=== PATIENT | female | born 2000 ===

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

== ENCOUNTER 2021-06-29 21:10 | Emergency (ER) | payer MEDICAID, SELFPAY ==
--- NOTE | ~2021-06-29 | XR_ITS ---
EXAMINATION: XR HAND, LEFT CLINICAL INFORMATION: Pain. Bleeding. COMPARISON: None TECHNIQUE: PA, lateral, and oblique views of the left hand. FINDINGS: There is no fracture or dislocation. Alignment is anatomic. Joint spaces are maintained. The soft tissues are unremarkable. XR/XR hand LT min 3V IMPRESSION: No acute osseous abnormality.
[2021-06-29 21:22] VITALS: BP 100/65; PULSE 81; RESP 18; TEMP 36; O2SAT 97; BMI 42.9
--- NOTE | 2021-06-29 22:03 | ED.EXTPRO ---
HPI - Extremity Problem General Chief complaint: Extremity Injury, Upper Stated complaint: finger laceration Time Seen by Provider: 06/29/21 22:03 Source: patient Mode of arrival: ambulatory Limitations: no limitations History of Present Illness HPI Narrative: Patient is a 21 year old female presenting to the emergency department today with a left middle finger injury. Patient states that she sat in a chair and her finger got pinched in between 2 sections of the chair, causing the injury. Patient denies any dizziness, lightheadedness, abdominal pain, nausea, vomiting, fever, chills, blurry vision, double vision, loss of vision, chest pain, difficulty breathing, shortness of breath, back pain, night sweats, pain with urination, increased urinary frequency, increased urinary urgency, blood in her urine or stool, syncope or a near syncopal episode, bowel incontinence, bladder incontinence, bowel retention, bladder retention, or any other complaints at this time. Patient states that she has a history of diabetes. MD Complaint: extremity pain Onset (ago): minute(s) Pain Consistency: constant Location: left and other (middle finger) Severity scale (1-10): 3 Quality: dull Radiation: none Relieving factors: nothing Exacerbating factors: nothing Associated symptoms: denies other symptoms Related Data Home Medications Medication Instructions Recorded Confirmed dulaglutide 1.5 mg/0.5 mL 1.5 mg SUBCUT SA 08/17/20 08/17/20 subcutaneous pen injector (Trulicity) metformin 500 mg tablet,extended 500 mg PO BID 08/17/20 08/17/20 release 24 hr Previous Rx's Medication Instructions Recorded cephalexin 500 mg capsule 500 mg PO Q6H 7 Days #28 cap 06/29/21 Allergies Allergy/AdvReac Type Severity Reaction Status Date / Time No Known Allergies Allergy Unverified 11/07/19 18:57 [No Known Allergies*] Review of Systems Constitutional: Constitutional: Reports no additional constitutional complaints, Denies chills, Denies fever(s) and Denies night sweats Eyes: Eyes: Reports no additional eye complaints, Denies blurry vision, Denies change in vision, Denies diplopia, Denies eye discharge, Denies loss of vision and Denies eye pain ENT: Denies dizziness Cardiovascular: Cardiovascular: Reports no additional cardiovascular complaints, Denies chest pain, Denies lightheadedness, Denies Loss of Consciousness and Denies dyspnea Respiratory: Respiratory: Reports no additional respiratory complaints and Denies dyspnea Gastrointestinal: Gastrointestinal: Reports no additional gastrointestinal complaints, Denies abdominal pain, Denies melena, Denies hematochezia, Denies change in bowel habits and Denies change in stool character Genitourinary: Genitourinary: Denies hematuria, Denies urinary frequency, Denies dysuria, Denies urinary incontinence, Denies urinary hesitancy and Denies urinary urgency Musculoskeletal: Musculoskeletal: Reports no additional musculoskeletal complaints, Denies numbness and Denies tingling Comments: left middle finger injury Neurologic: Denies dizziness, Denies loss of vision, Denies numbness and Denies tingling Psychiatric: Psychiatric: Reports no additional psychiatric complaints Endocrine: Endocrine: Reports no additional endocrine complaints Hematologic/Lymphatic: Hematologic/Lymphatic: Reports no additional hematologic/lymphatic complaints Allergic/Immunologic: Allergic/Immunologic: Reports no additional allergic/immunologic complaints [facility] Past Medical History Attestation statement: The following information was validated with the patient. Source: old records reviewed Medical History Diabetes Surgical History No history of previous surgery Social History Social History Household Members: Family Housing: House Do you presently have visiting nurse or other home services: No Alcohol intake: never Patient Tobacco Use Status: Never used Tobacco Advance Directives: No Advance Directives Date on File: 08/17/20 Patient : No service: No Current occupational status: unemployed Physical Exam Vital Signs: Vital Signs: Last Vital Signs Temp 96.8 F 06/29/21: Pulse 81 06/29/21:22 Resp 18 06/29/21: BP 100/65 06/29/21: Pulse Ox 97 06/29/21: BMI result Body Mass Index 42.9 Const: General: cooperative, no acute distress, alert and awake Nutritional Appearance: well nourished Orientation/consciousness: patient oriented x3 Limitations: no limitations HEENT: Head: Yes normal to inspection and Yes atraumatic Ears: hearing grossly normal bilaterally and external ears normal General nose exam: Normal external nose present, no nasal discharge noted and no epistaxis Face and sinus: Yes normal facial exam, No abrasion and No laceration Mouth: Normal oral and palatal mucosa present, no drooling and no muffled voice Eyes: General: appearance normal, both eyes and all related structures Periorbital: periorbital findings normal Eyelids: Yes eyelids normal Conjunctivae: conjunctivae normal Pupils: Equal, round and reactive pupils present EOM: EOMs intact bilaterally Neck: Neck: Yes normal visual inspection, Yes full ROM and Yes no lymphadenopathy Chest: Chest palpation & inspection: normal inspection of the chest Resp: Effort & Inspection: normal respiratory effort and able to speak in complete sentences Auscultation: clear to auscultation bilaterally Cardio: Rate: regular rate Rhythm: regular rhythm GI: Inspection: Yes normal to inspection Neuro: General: patient oriented x3 and moves all extremities Cranial nerves: Yes Equal, round and reactive pupils present Cognition (Neuro): normal cognition Motor exam (neuro): 5/5 motor strength present throughout Sensory Exam: Normal double simultaneous stimulation for sensation Coordination: [id number] test normal Extrem: Other: left middle finger nail avulsion with no nail bed injury, no active bleeding, no gaping areas General: Yes full ROM Psych: Appearance: grossly normal Mental Status: mental status grossly normal Affect: normal affect Attitude: cooperative Thought process: Normal thought process present Thought content: Normal thought content present Insight: Good insight present (Psych) MDM - Extremity (Nontraumatic) MDM Narrative Medical decision making narrative: Patient is a 21 year old female presenting to the emergency department today with a left middle finger injury. Patient's physical exam showed a nail avulsion of the left middle finger but no active bleeding or gaping areas. Patient's left hand x-ray showed no acute process. I explained my physical exam findings as well as all test results to the patient. I answered all questions asked by the patient. I stressed the importance of the patient taking her medication as prescribed. I stressed the importance of the patient following up with her primary care provider. I stressed the importance of the patient returning to the emergency department immediately if her symptoms were to worsen or if she were to develop any dizziness, shortness of breath, difficulty breathing, chest pain, blurry vision, loss of vision, nausea, vomiting, abdominal pain, fever, chills, back pain, or any other complaints. Patient verbalized agreement and understanding with this treatment plan and discharge. Differential Diagnosis Differential diagnosis: Unlikely gout (left middle finger nail avulsion) Medical Records Attestation: I reviewed the patient's medical records. Imaging Data Left hand x-ray: Attestation: I personally reviewed and interpreted this imaging study as follows: My impression: No acute process. Radiologist's impression: EXAMINATION: XR HAND, LEFT CLINICAL INFORMATION: Pain. Bleeding.? COMPARISON: None? TECHNIQUE: PA, lateral, and oblique views of the left hand. FINDINGS: There is no fracture or dislocation. Alignment is anatomic. Joint spaces are maintained. The soft tissues are unremarkable.? XR/XR hand LT min 3V IMPRESSION: No acute osseous abnormality. Dictated By: Nba Estrada MD Signed By: Electronically signed by Nba Estrada MD 06/29/21 0920 Discharge Plan Discharge Clinical Impression: Nail avulsion, finger Patient Disposition: Home, Self-Care Instructions: Nail Avulsion (ED) Additional Instructions: Follow up with your primary care provider. Return to the emergency department immediately if your symptoms worsen or if you develop any dizziness, shortness of breath, difficulty breathing, chest pain, blurry vision, loss of vision, nausea, vomiting, abdominal pain, fever, chills, back pain, or any other complaints. Prescriptions: New cephalexin 500 mg capsule 500 mg PO Q6H 7 Days Qty: 28 0RF No Action metformin 500 mg tablet extended release 24 hr 500 mg PO BID 0RF Trulicity 1.5 mg/0.5 mL pen injector 1.5 mg subcut SA 0RF Referrals: [facility] [Primary Care Provider] - Stand Alone Forms: Work/School Release Print Language: Prydeinig
[2021-06-29] MEDS: Diphth,Pertus(ACell),Tet Adult 0.5 ML SYRINGE IM (22:48)
== END 2021-06-29 23:00 | disposition home or self-care (01) ==
PROVIDERS: Emergency Provider Internal Medicine
DX: S61.303A Unspecified open wound of left middle finger with damage to nail, initial encounter (principal); S60.413A Abrasion of left middle finger, initial encounter; Y29.XXXA Contact with blunt object, undetermined intent, initial encounter; Y93.9 Activity, unspecified; Y92.9 Unspecified place or not applicable; Y99.9 Unspecified external cause status; Z79.899 Other long term (current) drug therapy
CPT/HCPCS: 73130; 90471; 90715; 99283; 99284

== ENCOUNTER 2023-01-18 14:47 | Outpatient (REF) | payer MEDICAID, SELFPAY ==
[2023-01-19 02:08] LABS: CT PCR NOT DETECTED (Not Detect.); NG PCR NOT DETECTED (Not Detect.)
[2023-01-19 08:48] LABS: Syphilis Screen Nonreactive (Nonreactive)
[2023-01-19 09:28] LABS: HIV AB/AG Nonreactive (Nonreactive); HIV Num 1 0.05 S/CO (0.00-0.99); ~HepC Num1 0.09 S/CO (0.00-0.79); ~Hepatitis C Antibody Nonreactive (Nonreactive)
== END 2023-01-18 14:48 | disposition home or self-care (01) ==
LOC: HO.HHCL 14:47
PROVIDERS: Visit Provider General Practice
DX: Z11.3 Encounter for screening for infections with a predominantly sexual mode of transmission (principal); Z11.4 Encounter for screening for human immunodeficiency virus [HIV]
CPT/HCPCS: 0353U; 36415; 86780; 86803; 87389

== ENCOUNTER 2023-01-19 16:09 | Outpatient (REF) | payer MEDICAID, SELFPAY | END 2023-01-19 16:10 | disposition home or self-care (01) | LOC: HO.HHCLNP 16:09 | PROVIDERS: Visit Provider General Practice | DX: Z11.2 Encounter for screening for other bacterial diseases (principal); T78.1XXA Other adverse food reactions, not elsewhere classified, initial encounter | CPT/HCPCS: 87338 ==

== ENCOUNTER 2023-02-22 16:17 | Outpatient (REF) | payer MEDICAID, SELFPAY | END 2023-02-22 16:18 | disposition home or self-care (01) | LOC: HO.HHCL 16:17 | PROVIDERS: Visit Provider Student in an Organized Health Care Education/Training Program | DX: R19.7 Diarrhea, unspecified (principal) | CPT/HCPCS: 86008 ==

== ENCOUNTER 2023-02-24 10:08 | Outpatient (REF) | payer MEDICAID, SELFPAY ==
[2023-02-24 13:43] LABS: Adenovirus F 40/41 Not Detected (Not Detect.); Astrovirus Not Detected (Not Detect.); Campylobacter Not Detected (Not Detect.); Cryptosporidium Not Detected (Not Detect.); Cyclospora cayetanensis Not Detected (Not Detect.); E. coli EAEC Not Detected (Not Detect.); E. coli EPEC Not Detected (Not Detect.); E. coli ETEC Not Detected (Not Detect.); E. coli STEC Not Detected (Not Detect.); Entamoeba histolytica Not Detected (Not Detect.); Giardia lamblia Not Detected (Not Detect.); Norovirus GI/GII Not Detected (Not Detect.); Plesiomonas shigelloides Not Detected (Not Detect.); Rotavirus A Not Detected (Not Detect.); Salmonella Not Detected (Not Detect.); Sapovirus Not Detected (Not Detect.); Shigella sp./EIEC Not Detected (Not Detect.); Vibrio Not Detected (Not Detect.); Vibrio Cholerae Not Detected (Not Detect.); Yersinia enterocolitica Not Detected (Not Detect.)
== END 2023-02-24 10:09 | disposition home or self-care (01) ==
LOC: HO.HHCL 10:08
PROVIDERS: Visit Provider Student in an Organized Health Care Education/Training Program
DX: R19.7 Diarrhea, unspecified (principal)
CPT/HCPCS: 87177; 87209; 87493; 87507

== ENCOUNTER 2023-04-11 14:22 | Outpatient (AMB) | payer MEDICAID, SELFPAY ==
--- NOTE | 2023-04-11 14:23 | A.OFFVIS_ITS ---
Intake Vital Signs 04/11/23 14:24 Height 5 ft 4 in Weight 268 lb 15.423 oz BMI 46.2 BP 100/65 Blood Pressure Location Rt brachial Position Sitting Pulse 89 Intake Visit Reasons: Diarrhea Intake Note: Patient patient presents to in office visit as a new patient for diarrhea. CC: Patient reports having diarrhea for about 2 years. Per Pt's mom the patient contracted a bacteria from a meat and ever since every time she eats anything c ontaining meat she gets diarrhea. She also c/o abdominal pain and hearburn sometimes. Whiskey Regauger Required: No Accompanied by: Mother Allergies No Known Allergies [No Known Allergies*] Allergy (Verified 04/11/23 14:30) HPI Diarrhea HPI Details 23-year-old female here for initial eval uation of diarrhea. She is referred by Nallely Rhoades of [facility]. PMX Morbid obesity-BMI 44 Diabetes History of ileus Chronic diarrhea Depression History of H pylori infection-treated 01/25/2023 HISTORY OF FAM'S PALSY * SURGICAL HISTORY Pt denies * ALLERGIES: NKDA * [employer] LABS: Laboratory Tests 01/19/23 02/24/23 05:18 09:20 Stool H. pylori Ag positive C. difficile Tox B Gene NEGATIVE 02/24/23-[address]: ORDERED: GI Panel Test Result Flag Refere nce Campylobacter No t Detected Not Det ect. P. shigell oides Not Detected No t Detect. Salmo gary Not Detect ed Not Detect. Vibrio Not D etected Not Detect . Vibrio Choler ae Not Detected Not D etect. Y. enter ocolit. Not Detected Not Detect. E. coli EAEC Not Dete cted Not Detect. E. coli EPEC Not Detected Not Dete ct. E. coli ETE C Not Detected Not Detect. E. col i STEC Not Detecte d Not Detect. E . coli O157 Not francoise licable Not Detect. E. coli c ontaining the O157 antigen are a sub set of Shig a-like toxin-produ cing E. coli (STEC ). Shigella/EIEC Not Detected Not D etect. Cryptosp oridium Not Detected Not Detect. Cyc lospora Not Dete cted Not Detect. E. histolytica Not Detected Not Dete ct. Giardia gaming blia Not Detected Not Detect. Adenov irus Not Detecte d Not Detect. A strovirus Not De tected Not Detect. Norovirus N ot Detected Not De tect. Rotavirus A Not Detected N ot Detect. Sandeep virus Not Detec gwyn Not Detect. 02/24/23-[address]: ORDERED: Ova and Parasit Test Result Flag Refere nce Ova Trichrome SEE NOTE OVA AND PARASITES, CO NC AND PERM SMEAR Micro Num rohit: [id number] Test Sta tus: Final Specimen S ource: Stool Specimen Ben lity: Adequate CONCENTRATI ON 1: No ova or parasites seen TODAY'S VISIT Patient is here today with her mother who says the patient contracted diarrhea from food poisoning and then ever since then has had diarrhea when she eats meat. This was 2 years ago. She can eat chicken and fish, but not beef or pork. She had some sort of testing at [facility] (? [facility]) saying she was not allergic to beef or pork. She does not have diarrhea with eating any other foods, and when she avoids beef and pork her stools are normal informed. Given that she has already had allergy testing this is likely an intolerance which really can not test for. At any rate the treatment would be simply to avoid these foods. I do not believe any further testing would be of benefit and the risk certainly would not justify the intervention. Should she start having diarrhea more globally with other foods then they are welcome to come back and see me and we will consider further interventions. Return office visit as needed. Her mother and patient are in agreement with the treatment plan. [facility] Medical History History of Fam's palsy H. pylori infection Diabetes Surgical History No history of previous surgery Social History Household Members: Family Housing: House Do you presently have visiting nurse or other home services: No Alcohol intake: never Patient Tobacco Use Status: Never used Tobacco Advance Directives Date on File: 08/17/20 service: No Current occupational status: unemployed Review of Systems Const Denies fatigue, Denies fever(s), Denies night sweats, Denies poor appetite and Denies weight loss ENT Reports Normal hearing present, Denies dental pain, Denies dysphagia, Denies hearing loss, Denies mouth pain, Denies odynophagia, Denies throat swelling, Denies tongue swelling and Reports other (Dentition adequate) Card Reports no additional complaints Resp Reports no additional complaints GI Details: Denies abdominal pain, Denies melena, Denies bloating, Denies hematochezia, Denies constipation, Denies GI cramping, Denies dysphagia, Denies excessive flatus, Denies early satiety, Denies heartburn, Reports diarrhea, Denies nausea, Denies odynophagia, Denies vomiting and Denies hematemesis Skin/Breast Denies pruritus, Denies lesions, Denies rash and Denies jaundice Neuro Reports Normal hearing present and Denies Abnormal speech present Endo Denies fatigue Aller/Immun Denies throat swelling and Denies tongue swelling Physical Exam Vital Signs: Last Vital Signs Pulse 89 04/11/23 14:24 BP 100/65 04/11/23 14:24 BMI result Body Mass Index 46.2 Const General: cooperative, no acute distress, well developed and well groomed Nutritional Appearance: well nourished and obese morbidly obese Orientation/consciousness: oriented to person, oriented to place and oriented to time Limitations: No language barrier HEENT Head: Yes normocephalic and Yes atraumatic Eyes General: appearance normal, both eyes and all related structures Pupils: Equal, round and reactive pupils present Neck Neck: Yes normal visual inspection and Yes no lymphadenopathy Thyroid: Thyroid normal Resp Effort & Inspection: normal respiratory effort and able to speak in complete sentences Auscultation: clear to auscultation bilaterally Cardio Rate: regular rate Rhythm: regular rhythm Heart sounds: Normal, physiologic split S2 sound present Peripheral pulses: radial pulses present and posterior tibial pulses present GI Inspection: No distended, Yes Abdominal panniculus present and Yes obesity Palpation (GI): Soft to palpation, nontender, no guarding, not rigid and No hepatosplenomegaly present Percussion: Yes normal to percussion Auscultation: normal bowel sounds Rectal Exam - Female: deferred Skin General skin exam: no rashes or lesions noted, turgor normal, skin not dry, no jaundice, No spider nevi and no striae Rashes: no rashes Nails: normal Neuro General: oriented to person, oriented to place and oriented to time Cranial nerves: Yes Equal, round and reactive pupils present and Yes Normal hearing present Speech: No Abnormal speech present Extrem General: Yes normal to inspection, No clubbing, No cyanosis and No edema Psych Appearance: grossly normal and well kempt Mental Status: mental status grossly normal Speech and movement: Normal speech and movement present Affect: normal affect Attitude: cooperative Thought process: Normal thought process present and not confabulating Thought content: Normal thought content present Insight: Limited insight present (Psych) Judgement: Limited judgement present (Psych) Assessment & Plan Assessment & Plan (1) Diarrhea: Code(s): R19.7 - Diarrhea, unspecified Plan Patient is here today with her mother who says the patient contracted diarrhea from food poisoning and then ever since then has had diarrhea when she eats meat. This was 2 years ago. She can eat chicken and fish, but not beef or pork. She had some sort of testing at [facility] (? [facility]) saying she was not allergic to beef or pork. She does not have diarrhea with eating any other foods, and when she avoids beef and pork her stools are normal informed. Given that she has already had allergy testing this is likely an intolerance which really can not test for. At any rate the treatment would be simply to avoid these foods. I do not believe any further testing would be of benefit and the risk certainly would not justify the intervention. Should she start having diarrhea more globally with other foods then they are welcome to come back and see me and we will consider further interventions. Return office visit as needed. Her mother and patient are in agreement with the treatment plan. Coding Level of Care Code New Pt Level 3 (64105) Diagnoses Diarrhea R19.7
[2023-04-11 14:24] VITALS: BP 100/65; PULSE 89; BMI 46.2
== END 2023-04-11 15:02 | disposition home or self-care (01) ==
PROVIDERS: Visit Provider Nurse Practitioner
DX: R19.7 Diarrhea, unspecified (principal)
CPT/HCPCS: 99203

== ENCOUNTER → 2023-04-11 14:22 | Outpatient (BNVA) | payer MEDICAID, SELFPAY | PROVIDERS: Visit Provider Nurse Practitioner | DX: R19.7 Diarrhea, unspecified (principal) | CPT/HCPCS: 99212 ==

== ENCOUNTER 2023-10-01 19:53 | Emergency (ER) | payer MEDICAID, SELFPAY ==
--- NOTE | ~2023-10-01 | CT_ITS ---
EXAMINATION: CT ABDOMEN AND PELVIS WITHOUT CONTRAST CLINICAL INFORMATION: Abdominal pain, leukocytosis, rule out appendicitis COMPARISON: 08/17/2020 TECHNIQUE: Multidetector volumetric imaging was performed from the superior aspect of the liver through the pubic symphysis. Sagittal and coronal reformatted images were obtained on the technologist's workstation. This CT examination was performed using dose optimization techniques as appropriate, variously including the following: *Automated exposure control *Adjustment of mA and/or kV according to patient size (this includes techniques or standardized protocols for targeted exams where dose is matched to indication/reason for exam; i.e. extremities or head) *Use of iterative reconstruction technique DLP: 958 mGy-cm FINDINGS: Limited evaluation due to lack of IV contrast. LUNG BASES: Unremarkable. ABDOMINAL AND PELVIC WALL: Unremarkable. LIVER AND BILIARY TREE: Hepatic steatosis. No focal hepatic lesion or intrahepatic biliary ductal dilatation. Liver is enlarged measuring 19.2 cm in the craniocaudal dimension. GALLBLADDER: Unremarkable. PANCREAS: Unremarkable. SPLEEN: Unremarkable. ADRENAL GLANDS: Unremarkable. KIDNEYS AND URETERS: Unremarkable. GASTROINTESTINAL TRACT: Unremarkable. The appendix is within normal limits. VASCULAR: Unremarkable. LYMPH NODES/PERITONEUM: No lymphadenopathy. FREE FLUID: None. BLADDER: Unremarkable. PELVIC VISCERA: Unremarkable. OSSEOUS STRUCTURES: Unremarkable. CT/CT abdomen pelvis wo IV con IMPRESSION: * No acute intra-abdominal abnormality. Appendix is within normal limits. * Hepatomegaly and hepatic steatosis.
[2023-10-01 20:32] VITALS: BP 122/72; PULSE 86; RESP 18; TEMP 36.7; O2SAT 98; BMI 46.9
--- NOTE | 2023-10-01 20:33 | ED.GENADULT ---
HPI - General Adult General Chief complaint: Abdominal Pain Stated complaint: abdominal pain, vomiting Time Seen by Provider: 10/01/23 21:59 Source: patient and family (Mother) Mode of arrival: ambulatory Limitations: no limitations History of Present Illness ED Provider: DR. Ritter HPI narrative: 23-year-old female history of diabetes, ileus, chronic GI issue and H pylori has been managed by GI in the past came in for evaluation of abdominal pain and nonbloody watery diarrhea x1 day after eating burger sandwich from [employer] last night. Had no nausea or vomiting, no recent use of antibiotic, no recent travel, no sick contacts. No fever, chills, no history of intra-abdominal surgery in the past. Related Data Home Medications ?Medication ?Instructions ?Recorded ?Confirmed metformin 500 mg tablet,extended 500 mg PO BID 08/17/20 08/17/20 release 24 hr dulaglutide 3 mg/0.5 mL 1.8 mg subcut QWEEK 04/11/23 subcutaneous pen injector (Trulicity) omeprazole 20 mg capsule,delayed 20 mg PO BID 04/11/23 release Previous Rx's ?Medication ?Instructions ?Recorded cefuroxime axetil 500 mg tablet 500 mg PO BID #14 tabs 10/01/23 Allergies Allergy/AdvReac Type Severity Reaction Status Date / Time No Known Allergies Allergy Verified 10/01/23 20:35 [No Known Allergies*] Review of Systems Review of Systems: All other systems are reviewed and are negative Constitutional: Reports as per HPI and Reports no additional constitutional complaints Eyes: Reports as per HPI and Reports no additional eye complaints Reports system reviewed and no additional complaints, except as documented Cardiovascular: Reports as per HPI and Reports no additional cardiovascular complaints Respiratory: Reports as per HPI and Reports no additional respiratory complaints Gastrointestinal: Reports as per HPI and Reports no additional gastrointestinal complaints Genitourinary: Reports no additional female genitourinary complaints Musculoskeletal: Reports no additional musculoskeletal complaints Skin/Breast: Reports system reviewed and no additional complaints, except as docu Psychiatric: Reports no additional psychiatric complaints Endocrine: Reports no additional endocrine complaints Hematologic/Lymphatic: Reports no additional hematologic/lymphatic complaints Allergic/Immunologic: Reports no additional allergic/immunologic complaints Reports system reviewed and no additional complaints, except as documented and Reports Abnormal speech present PMFSH Past Medical History Medical History History of Fam's palsy H. pylori infection Diabetes Surgical History No history of previous surgery Social History Social History Household Members: Family Housing: House Do you presently have visiting nurse or other home services: No Alcohol intake: never Patient Tobacco Use Status: Never used Tobacco Smoked in Last 30 Days: No Use of substances other than those prescribed or required for medical reasons: No Advance Directives: No Advance Directives Information Provided: No Advance Directives Date on File: 08/17/20 Do you have a plan to hurt others: No Plan service: No Current occupational status: unemployed Physical Exam ED Vital Signs: Vital Signs - 24 hr 10/01/23 20:32 Temperature 98.0 F Pulse Rate 86 Respiratory Rate 18 Blood Pressure 122/72 Pulse Oximetry 98 Oxygen Delivery Method Room Air BMI result Body Mass Index 46.9 Vital signs have been reviewed and appear to be correct. Blood pressure elevated. Heart rate normal. Respiratory rate normal. Temperature normal. Oxygen saturation normal. Appearance: Alert. Oriented X3. No acute distress. Head: Normal external exam. Normocephalic. Atraumatic. No Guillory signs noted. No raccoon eyes noted Eyes: PERRLA. EOMI. Conjunctiva and sclera normal. Eyelids normal. ENT: TM's Normal. Pharynx normal. Uvula midline. Moist mucous membranes. No trismus noted. No drooling noted. No muffled voice noted. Neck: Normal inspection. Neck supple. FROM. No adenopathy. Thyroid Normal. No meningeal signs. No neck mass noted. CVS: Normal heart rate and rhythm. Heart sound normal. No murmurs noted. Pulses normal throughout. Respiratory: No respiratory distress. Painless inspiration. Breath sounds normal. No wheezes/rales/rhonchi noted. Chest nontender. No accessory muscle usage noted or decreased air movement noted. Abdomen: Soft, obese, epigastric/periumbilical tenderness to deep palpation, no guarding, no rebound tenderness. Bowel sounds normal in all 4 quadrants. No distention noted. No organomegaly noted. No visible injury noted. Back: No CVA tenderness. Full range of motion noted. Skin: Skin warm and dry. Normal skin color. Normal skin turgor. No rashes/lesions/lacerations noted. Extremities: No lower extremity edema. Extremities exhibit normal range of motion. Extremities nontender. Neuro: Oriented X 3. Cranial nerve exam: II-XII are grossly intact No motor deficit. No sensory deficit. Reflexes normal. Course Course Course Narrative: This is a rapid medical exam performed by Elena Soto NP: Additional HPI, ROS, PE not included below will be deferred to primary provider. Patient is a 23-year-old female with history of DM, ileus, H. pylori treated in 01/2023, chronic diarrhea presenting to the ED with complaint of upper abdominal pain and diarrhea since this morning. Took Pepto Bismol without relief. Has seen GI in the past. Plan: viral serology, labs, UA Reevaluation(s) Reevaluation #1: Feels better after Pepcid and Imodium, normal appetite now able to tolerate clears in the ED. CT abdomen and pelvis no evidence of acute appendicitis or any other intra-abdominal pathology. UA reveals UTI start on cefuroxime and encouraged to drink plenty of fluids. Instructed to follow-up with PCP. Time: 23:50 Medications Administered Discontinued Medications Generic Name Dose Route Start Last Admin Trade Name Freq PRN Reason Stop Dose Admin Famotidine 20 mg 10/01/23 22:05 10/01/23 22:12 Famotidine 20 Mg Tablet PO 10/01/23 22:06 20 mg ONCE ONE Administration Loperamide HCl 2 mg 10/01/23 22:05 10/01/23 22:12 Loperamide Hcl 2 Mg Capsule PO 10/01/23 22:06 2 mg ONCE ONE Administration Medical Decision Making Differential Diagnosis Differential Diagnoses: The differential diagnosis associated with the presentation includes (Gastroenteritis, food poisoning, colitis, ileus, acute appendicitis, acute diverticulitis, acute pancreatitis, UTI, pyelonephritis, , kidney stone.) Admission/Observation Consideration of admission/observation: Escalation of care including admission/observation considered Lab Data [facility] Lab Attestation statement: I reviewed the patient's lab results. 10/01/23 20:43 10/01/23 20:43 Labs: Lab Results 10/01/23 10/01/23 Range/Units 20:43 22:07 WBC 11.8 H (4.8-10.8) X10*3/uL RBC 4.52 (4.20-5.50) X10*6/uL Hgb 12.5 (12.0-16.0) g/dl Hct 39.1 (37.0-47.0) % MCV 86.5 (80.0-98.0) fL MCH 27.7 (27.0-33.0) pg MCHC 32.0 (31.0-35.0) g/dl RDW 13.3 (11.0-16.0) % Plt Count 256 (160-400) X10*3/uL MPV 11.5 (9.4-12.3) fL Immature Gran % (Auto) 0.3 (0.0-0.4) % Neut % (Auto) 67.1 (45-73) % Lymph % (Auto) 23.0 (20-40) % [place] % (Auto) 6.5 (2-11) % Eos % (Auto) 2.7 (0-4) % Baso % (Auto) 0.4 (0-2) % Lymph # (Auto) 2.7 (1.2-4.9) X10*3/uL [place] # (Auto) 0.8 (0.1-1.2) X10*3/uL Eos # (Auto) 0.3 (0.0-0.4) X10*3/uL Baso # (Auto) 0.1 (0.0-0.2) X10*3/uL Abs Immat Gran (auto) 0.03 (0.00-0.03) X10*3/uL Absolute Neuts (auto) 7.9 (2.0-8.3) x10*3/uL Absolute Nucleated RBC 0.000 (0.0-0.012) X10*3/uL Nucleated RBC % (auto) 0.0 (0.0-0.2) /100WBC Sodium 142 (135-145) mmol/L Potassium 4.0 (3.3-5.1) mmol/L Chloride 108 (96-108) mmol/L Carbon Dioxide 29 (22-29) mmol/L Anion Gap 9 L (12-20) BUN 8 L (9-16) mg/dL Creatinine 1.04 (0.5-1.4) mg/dL Estim Creat Clear Calc 110.3 Estimated GFR > 60 Random Glucose 133 H (60-115) mg/dL Calcium 9.4 (8.4-10.2) mg/dL Magnesium 1.9 (1.6-2.6) mg/dL Total Bilirubin 0.2 (0.0-1.0) mg/dL AST 15 (5-31) U/L ALT 20 (0-31) U/L Alkaline Phosphatase 78 (39-117) U/L Total Protein 7.8 (6.5-8.0) g/dL Albumin 4.0 (3.5-5.0) g/dL Amylase 44 (28-100) U/L Lipase 25 (8-78) U/L Beta HCG, Quant < 2 mIU/mL Urine Color Yellow Urine Appearance Cloudy Urine pH 5.5 (5.0-9.0) Ur Specific [place] >= 1.030 H (1.005-1.025) Urine Protein Trace (Neg-Trace) mg/dL Urine Glucose (UA) Negative (Negative) mg/dL Urine Ketones Trace (Negative) mg/dL Urine Blood Negative (Negative) Urine Nitrite Negative (Negative) Ur Leukocyte Esterase Small (1+) H (Negative) Urine RBC 0-2 (0-2) /HPF Urine WBC 21-50 H (0-5) /HPF Ur Squamous Epith Cells 11-20 (0-2) /HPF Calcium Oxalate Crystal Present Urine Bacteria 2+ (None Seen) Hyaline Casts 0-2 (0-2) /LPF Influenza Type A (PCR) NEGATIVE (Negative) Influenza Type B (PCR) NEGATIVE (Negative) RSV RNA Qual (PCR) NEGATIVE (Negative) SARS-CoV-2 RNA (RT-PCR) NEGATIVE (Negative) Independent Interpretation I performed an independent interpretation of an: CT Scan (Abdomen and pelvis: No acute intra-abdominal pathology) Radiology Impression Discussion of test interpretation with radiology: I have reviewed the radiologist's reading. Chronic Conditions Patient?s care impacted by: Diabetes Discharge Plan Discharge Clinical Impression: Abdominal pain, UTI (urinary tract infection) Patient Disposition: Home, Self-Care Instructions: Urinary Tract Infection in Women (DC), Abdominal Pain (ED) Prescriptions: New cefuroxime axetil 500 mg tablet 500 mg PO BID Qty: 14 0RF No Action metformin 500 mg tablet extended release 24 hr 500 mg PO BID Trulicity 3 mg/0.5 mL pen injector 1.8 mg subcut QWEEK omeprazole 20 mg capsule,delayed release(DR/EC) 20 mg PO BID Referrals: [facility] [Primary Care Provider] - Print Language: Azerbaijani
[2023-10-01 20:47] LABS: MANUAL DIFF FLAG NO
[2023-10-01 20:49] LABS: Basophils Absolute Auto 0.1 X10*3/uL (0.0-0.2); Basophils Percent Auto 0.4 % (0-2); Eosinophils Absolute Auto 0.3 X10*3/uL (0.0-0.4); Eosinophils Percent Auto 2.7 % (0-4); Hematocrit 39.1 % (37.0-47.0); Hemoglobin 12.5 g/dl (12.0-16.0); Imm Gran Abs Auto 0.03 X10*3/uL (0.00-0.03); Imm Gran Pct Auto 0.3 % (0.0-0.4); Lymphocytes Absolute Auto 2.7 X10*3/uL (1.2-4.9); Mean Corpuscular Hemoglobin 27.7 pg (27.0-33.0); Mean Corpuscular Volume 86.5 fL (80.0-98.0); Mean Platelet Volume 11.5 fL (9.4-12.3); Monocytes Absolute Auto 0.8 X10*3/uL (0.1-1.2); Monocytes Percent Auto 6.5 % (2-11); Neutrophils Absolute Auto 7.9 x10*3/uL (2.0-8.3); Neutrophils Percent Auto 67.1 % (45-73); Platelet Count 256 X10*3/uL (160-400); Red Blood Count 4.52 X10*6/uL (4.20-5.50); Red Cell Distribution Width 13.3 % (11.0-16.0); White Blood Count 11.8 X10*3/uL (4.8-10.8)
[2023-10-01 21:20] LABS: Alanine Aminotransferase 20 U/L (0-31); Alkaline Phosphatase 78 U/L (39-117); Amylase 44 U/L (28-100); Anion Gap 9 (12-20); Aspartate Amino Transferase 15 U/L (5-31); Bilirubin Total 0.2 mg/dL (0.0-1.0); Blood Urea Nitrogen 8 mg/dL (9-16); Calcium 9.4 mg/dL (8.4-10.2); Carbon Dioxide 29 mmol/L (22-29); Chloride 108 mmol/L (96-108); Creatinine Clr Calc Pharmacy 110.3; Estimated Glomerular Filt Rate > 60; Glucose Random 133 mg/dL (60-115); Lipase 25 U/L (8-78); Magnesium 1.9 mg/dL (1.6-2.6); Sodium 142 mmol/L (135-145); Total Protein 7.8 g/dL (6.5-8.0)
[2023-10-01 21:30] LABS: HCG Quantitative < 2 mIU/mL
[2023-10-01 21:31] LABS: Influenza A PCR NEGATIVE (Negative); Influenza B PCR NEGATIVE (Negative); Resp Syncy Virus RNA Qual PCR NEGATIVE (Negative); SARS COV2 PCR INHOUSE NEGATIVE (Negative)
[2023-10-01] MEDS: Famotidine 20 MG TABLET PO (22:12)
[2023-10-01] MEDS: Loperamide HCl 2 MG CAPSULE PO (22:12)
[2023-10-01 22:14] LABS: Appearance Urine Cloudy; Color Urine Yellow; Glucose Urine UA Negative (Negative); Leukocyte Esterase Urine Small (1+) (Negative); Nitrite Urine Negative (Negative); PH 5.5 (5.0-9.0); Specific Gravity - Urine >= 1.030 (1.005-1.025); UMIC TRIGGER UACC YES; Urine Blood Negative (Negative); Urine Ketones Trace mg/dL (Negative); Urine Protein Trace mg/dL (Neg-Trace)
[2023-10-01 22:37] LABS: Bacteria Urine 2+ (None Seen); Calcium Oxalate Crystals Urine Present; Hyaline Casts Urine 0-2 /LPF (0-2); RBC Urine 0-2 /HPF (0-2); UACC Culture Trigger YES; WBC Urine 21-50 /HPF (0-5)
[2023-10-01] MEDS: cefuroxime axetiL 500 MG TABLET PO (23:03)
[2023-10-01 23:04] VITALS: BP 111/63; PULSE 89; RESP 16; TEMP 36.7; O2SAT 100
[2023-10-01 23:12] VITALS: BP 111/63; PULSE 89; RESP 16; TEMP 36.7; O2SAT 100
== END 2023-10-01 23:13 | disposition home or self-care (01) ==
PROVIDERS: Registered Nurse Emergency; Emergency Provider Emergency Medicine
DX: R10.9 Unspecified abdominal pain (principal); N39.0 Urinary tract infection, site not specified; E11.9 Type 2 diabetes mellitus without complications; Z79.899 Other long term (current) drug therapy; Z03.818 Encounter for observation for suspected exposure to other biological agents ruled out; Z79.84 Long term (current) use of oral hypoglycemic drugs
CPT/HCPCS: 0241U; 74176; 80053; 81001; 82150; 83690; 83735; 84702; 85025; 87086; 99284

== ENCOUNTER 2023-10-12 14:02 | Outpatient (REF) | payer MEDICAID, SELFPAY ==
[2023-10-12 18:14] LABS: Appearance Urine Clear; Color Urine Dark Yellow; Glucose Urine UA Negative (Negative); Leukocyte Esterase Urine Small (1+) (Negative); Nitrite Urine Negative (Negative); PH 6.5 (5.0-9.0); UMIC TRIGGER UACC YES; Urine Blood Negative (Negative); Urine Ketones Negative (Negative); Urine Protein Negative (Neg-Trace)
[2023-10-12 18:38] LABS: Bacteria Urine None Seen (None Seen); Hyaline Casts Urine 0-2 /LPF (0-2); RBC Urine 0-2 /HPF (0-2); UACC Culture Trigger YES; WBC Urine 0-5 /HPF (0-5)
[2023-10-13 03:12] LABS: CT PCR NOT DETECTED (Not Detect.); NG PCR NOT DETECTED (Not Detect.)
[2023-10-13 08:17] LABS: HIV AB/AG Nonreactive (Nonreactive); HIV Num 1 0.44 S/CO (0.00-0.99); ~HepC Num1 0.14 S/CO (0.00-0.79); ~Hepatitis C Antibody Nonreactive (Nonreactive)
[2023-10-13 10:47] LABS: Bacterial Vaginosis PCR POSITIVE (Negative); Candida Group PCR DETECTED (Not Detect); Candida glab krusei PCR NOT DETECTED (Not Detect); Trichomonas vaginalis PCR NOT DETECTED (Not Detect)
[2023-10-13 11:28] LABS: RPR Rapid Plasma Reagin NON-REACTIVE (NON-REACTIVE)
== END 2023-10-12 14:03 | disposition home or self-care (01) ==
LOC: HO.HHCL 14:02
PROVIDERS: Visit Provider Nurse Practitioner Primary Care
DX: R30.0 Dysuria (principal); Z11.3 Encounter for screening for infections with a predominantly sexual mode of transmission
CPT/HCPCS: 0352U; 36415; 81001; 86592; 86803; 87086; 87389; 87491; 87591

== ENCOUNTER 2023-10-16 15:31 | Outpatient (REF) | payer MEDICAID, SELFPAY ==
[2023-10-16 16:19] LABS: Appearance Urine Clear; Color Urine Yellow; Glucose Urine UA Negative (Negative); Leukocyte Esterase Urine Small (1+) (Negative); Nitrite Urine Negative (Negative); PH 5.5 (5.0-9.0); Specific Gravity - Urine 1.025 (1.005-1.025); UMIC TRIGGER UACC YES; Urine Blood Negative (Negative); Urine Ketones Trace mg/dL (Negative); Urine Protein Negative (Neg-Trace)
[2023-10-16 16:26] LABS: Bacteria Urine None Seen (None Seen); Hyaline Casts Urine 0-2 /LPF (0-2); RBC Urine 0-2 /HPF (0-2); UACC Culture Trigger YES; WBC Urine 0-5 /HPF (0-5)
== END 2023-10-16 15:32 | disposition home or self-care (01) ==
LOC: HO.HHCL 15:31
PROVIDERS: Visit Provider Nurse Practitioner Primary Care
DX: Z13.89 Encounter for screening for other disorder (principal)
CPT/HCPCS: 81001; 87086